=== PATIENT | female | born 1940 | race Caucasian/White ===

== ENCOUNTER 2021-09-15 07:09 | Emergency (ER) | payer MEDICARE, OTHER ==
[~2021-09-15] VITALS: Ht 154.9 cm; Wt 77.6 kg
[~2021-09-15 07:09] MED LIST: ASPI81CH; CALCA400CH PO; Cipro500 MG PO; FAMO20; Fibercon625 MG PO; Flagyl500 MG PO; GABA100 PO; IPRA.06NI; MELO7.5; METO25ER; NITR.4SL; QVAR7.3 GM IH; RHINOCORT ALL8.43 ML; VAGIFEM10 MCG VAG; XYZAL5 MG PO; Zofran Odt8 MG SL
[2021-09-15 07:43] LABS: BASOPHILS ABSOLUTE AUTO 0.08 K/mm3 (0.00-0.23); BASOPHILS PERCENT AUTO 1 % (0-2); EOSINOPHILS ABSOLUTE AUTO 0.15 K/mm3 (0.00-0.68); EOSINOPHILS PERCENT AUTO 2 % (0-6); Hematocrit 41.5 % (33.0-51.0); Hemoglobin 13.4 g/dL (11.5-16.0); IMMATURE GRAN ABSOLUTE AUTO 0.03 K/mm3 (0.00-0.10); IMMATURE GRAN PERCENT AUTO 0 % (0-1); LYMPHOCYTES ABSOLUTE AUTO 2.41 K/mm3 (0.84-5.20); LYMPHOCYTES PERCENT AUTO 36 % (21-46); MONOCYTES ABSOLUTE AUTO 0.68 K/mm3 (0.16-1.47); MONOCYTES PERCENT AUTO 10 % (4-13); Mean Corpuscular HGB 30.7 pg (26.0-34.0); Mean Corpuscular HGB Conc 32.3 g/dL (31.5-36.5); Mean Corpuscular Volume 95 fL (80-100); Mean Platelet Volume 10.8 fL (9.1-12.4); NEUTROPHILS ABSOLUTE AUTO 3.35 K/mm3 (1.96-9.15); NEUTROPHILS PERCENT AUTO 50 % (41-73); Platelet Count 228 K/mm3 (150-400); RDW Coefficient Variation 12.2 % (11.7-14.2); RDW Standard Deviation 42.6 fL (35.1-46.3); Red Blood Cell Count 4.36 M/mm3 (3.80-5.20)
[2021-09-15 07:52] LABS: Alanine Aminotransfer (ALT/SGP 27 U/L (12-78); Albumin, Blood 3.5 g/dL (3.4-5.0); Albumin/Globulin Ratio 0.9 (0.8-1.8); Alk Phos 79 U/L (50-136); Anion Gap 3 mmol/L (6-16); Aspartate Aminotrans (AST/SGOT 20 U/L (12-37); Bilirubin, Total 0.9 mg/dL (0.1-1.0); Blood Urea Nitrogen 19 mg/dL (8-24); Bun/Creatinine Ratio 23.2 (12.0-20.0); CO2, Blood 26 mmol/L (21-32); Calcium, Blood 8.9 mg/dL (8.5-10.1); Chloride, Blood 106 mmol/L (98-108); Creatinine, Blood 0.82 mg/dL (0.40-1.00); Ethanol (Alcohol), Blood, Med <3 mg/dL; Globulin, Blood 3.7 g/dL (2.2-4.0); Glomerular Filtration Rate 72 (60-); Glucose, Blood 95 mg/dL (70-99); Sodium, Blood 135 mmol/L (136-145); Total Protein, Blood 7.2 g/dL (6.4-8.2)
== END 2021-09-15 09:40 | disposition home or self-care (01) ==
LOC: ER 07:09
PROVIDERS: Student in an Organized Health Care Education/Training Program
DX: R53.1 Weakness (principal); R29.810 Facial weakness; I10 Essential (primary) hypertension; J44.9 Chronic obstructive pulmonary disease, unspecified; Z88.6 Allergy status to analgesic agent; Z91.010 Allergy to peanuts; Z88.0 Allergy status to penicillin; Z88.8 Allergy status to other drugs, medicaments and biological substances; Z91.018 Allergy to other foods; Z79.899 Other long term (current) drug therapy
CPT/HCPCS: 36415; 70450; 70496; 70498; 80053; 82947; 85025; 93005; 93010; G0480; Q9967

== ENCOUNTER → 2023-05-28 | Outpatient (CLI) | payer MEDICARE | LOC: LAB SHORT 10:46 → LAB 10:46 | DX: L08.0 Pyoderma (principal) | CPT/HCPCS: 87070; 87205 ==

== ENCOUNTER 2024-01-05 05:40 | Inpatient (IN) | payer MEDICARE, OTHER ==
[2024-01-05] VITALS (17 sets, daily range): BP systolic 111–148; BP diastolic 58–84
[~2024-01-05] VITALS: Ht 154.9 cm; Wt 74.8 kg
[2024-01-05 07:07] LABS: BASOPHILS ABSOLUTE AUTO 0.04 K/mm3 (0.00-0.23); BASOPHILS PERCENT AUTO 1 % (0-2); EOSINOPHILS ABSOLUTE AUTO 0.28 K/mm3 (0.00-0.68); EOSINOPHILS PERCENT AUTO 5 % (0-6); Hematocrit 37.7 % (33.0-51.0); Hemoglobin 12.6 g/dL (11.5-16.0); IMMATURE GRAN ABSOLUTE AUTO 0.02 K/mm3 (0.00-0.10); IMMATURE GRAN PERCENT AUTO 0 % (0-1); LYMPHOCYTES ABSOLUTE AUTO 2.11 K/mm3 (0.84-5.20); LYMPHOCYTES PERCENT AUTO 41 % (21-46); MONOCYTES ABSOLUTE AUTO 0.69 K/mm3 (0.16-1.47); MONOCYTES PERCENT AUTO 13 % (4-13); Mean Corpuscular HGB Conc 33.4 g/dL (31.5-36.5); Mean Corpuscular Volume 93 fL (80-100); NEUTROPHILS ABSOLUTE AUTO 2.07 K/mm3 (1.96-9.15); NEUTROPHILS PERCENT AUTO 40 % (41-73); Platelet Count 175 K/mm3 (150-400); RDW Coefficient Variation 11.9 % (11.7-14.2); RDW Standard Deviation 40.7 fL (35.1-46.3); Red Blood Cell Count 4.07 M/mm3 (3.80-5.20); White Blood Cell Count 5.21 K/mm3 (4.00-11.30)
[2024-01-05 07:16] LABS: Bun/Creatinine Ratio 16.8 (12.0-20.0); Calcium, Blood 9.2 mg/dL (8.5-10.1); Creatinine, Blood 0.83 mg/dL (0.40-1.00); Potassium, Blood 4.1 mmol/L (3.5-5.5)
[2024-01-05] MEDS ORDERED: Ondansetron HCl 2 MG / ML 2ML Vial IV ONE (08:20)
[2024-01-05] MEDS ORDERED: FentaNYL Citrate 50 MCG/ML 2 ML Injection IV ONE (08:20)
[2024-01-05] MEDS ORDERED: HYDROmorphone HCl/Pf 1MG SYR IV PRN (09:05)
[2024-01-05] MEDS ORDERED: Prochlorperazine Edisylate 10 mg Vial IV PRN (09:05)
[2024-01-05] MEDS ORDERED: Lactated Ringer's 1,000 ML IV SCH (09:05)
[2024-01-05] MEDS ORDERED: Acetaminophen 325 MG TABLET PO PRN (09:10)
[2024-01-05] MEDS ORDERED: Enalaprilat 1.25 MG/ML 2ML Vial IV PRN (09:10)
[2024-01-05] MEDS ORDERED: propofoL 60 ML IV ONE (10:59)
[2024-01-05] MEDS ORDERED: ePHEDrine Sulfate 50 MG/ML 1ML Injection ONE (10:59)
[2024-01-05] MEDS ORDERED: Dexamethasone Sod Phos 10 MG/ML 1ML VIAL ONE (11:00)
[2024-01-05] MEDS ORDERED: EpiNEPhrine 1 MG/1 ML 1ML Vial ONE (11:00)
[2024-01-05] MEDS ORDERED: Bupivacaine HCl 0.25% 30 ML Injection ONE (11:00)
[2024-01-05] MEDS ORDERED: CeFAZolin Sodium 2,000 MG in NS 100 ML IV SCH ×2 (11:30→20:00)
[2024-01-05] MEDS ORDERED: Tranexamic Acid 100 ML IV SCH (11:30)
--- NOTE | 2024-01-05 12:39 | NUR ---
01/05/24 [id number] Elva Herrera PATIENT RECEIVED A CLIFF NERVE BLOCK OF THE LEFT SIDE IN THE OR PERFORMED BY AT BEDSIDE PRIOR TO PROCEDURE START.
[2024-01-05] MEDS ORDERED: propofoL 20 ML IV ONE ×2 (12:54→13:52)
[2024-01-05] MEDS ORDERED: Phenylephrine HCl 100 MCG/ML-NS 10MLSYR (1MG/10ML) ONE (13:28)
[2024-01-05] MEDS ORDERED: Esmolol HCL 10 MG/ML 10ML VIAL ONE (13:30)
[2024-01-05] MEDS ORDERED: Avastin25 MG/ML (15:50)
[2024-01-05] MEDS ORDERED: LOSA25 PO (15:51)
[2024-01-05 16:09] LABS: Bun/Creatinine Ratio 17.4 (12.0-20.0); Calcium, Blood 8.7 mg/dL (8.5-10.1); Creatinine, Blood 0.69 mg/dL (0.40-1.00); Potassium, Blood 4.1 mmol/L (3.5-5.5)
[2024-01-05] MEDS ORDERED: HYDROcodone 5-APAP 325 TAB PO PRN (16:40)
--- NOTE | 2024-01-05 17:10 | NUR ---
SUMMARY VSS STABLE SINCE ARRIVING TO UNIT FROM PACU. PT HAS NOT BEEN OOB YET. MEDICATED PER ORDERS W/DILAUDID FOR 5/10 L HIP PAIN. PT HAS FULL SENSATION TO BLE. [place] DRAINING YELLOW URINE. PT HAS SMALL AMOUNT DRAINAGE ON AQUACEL. HAS PETECHIE TO L THIGH AND LOWER ABDOMEN THAT HAS BEEN PRESENT SINCE ARRIVED TO UNIT FROM PACU. CALL LIGHT IN REACH.
[2024-01-05] MEDS ORDERED: ATOR20 PO (18:04)
[2024-01-05] MEDS ORDERED: LOSA50 PO (18:05)
[2024-01-05] MEDS ORDERED: LEVOCETIRIZINE D5 MG PO (18:07)
[2024-01-06] VITALS (7 sets, daily range): BP systolic 132–152; BP diastolic 54–73
[2024-01-06 04:10] LABS: BASOPHILS ABSOLUTE AUTO 0.01 K/mm3 (0.00-0.23); BASOPHILS PERCENT AUTO 0 % (0-2); EOSINOPHILS PERCENT AUTO 0 % (0-6); Hematocrit 27.4 % (33.0-51.0); Hemoglobin 9.3 g/dL (11.5-16.0); IMMATURE GRAN ABSOLUTE AUTO 0.01 K/mm3 (0.00-0.10); IMMATURE GRAN PERCENT AUTO 0 % (0-1); LYMPHOCYTES ABSOLUTE AUTO 0.69 K/mm3 (0.84-5.20); LYMPHOCYTES PERCENT AUTO 9 % (21-46); MONOCYTES PERCENT AUTO 15 % (4-13); Mean Corpuscular HGB 31.5 pg (26.0-34.0); Mean Corpuscular HGB Conc 33.9 g/dL (31.5-36.5); Mean Corpuscular Volume 93 fL (80-100); NEUTROPHILS ABSOLUTE AUTO 5.96 K/mm3 (1.96-9.15); NEUTROPHILS PERCENT AUTO 76 % (41-73); Platelet Count 155 K/mm3 (150-400); RDW Standard Deviation 40.8 fL (35.1-46.3); Red Blood Cell Count 2.95 M/mm3 (3.80-5.20); White Blood Cell Count 7.87 K/mm3 (4.00-11.30)
--- NOTE | 2024-01-06 06:19 | NUR ---
SHIFT SUMMARY NOC. PT POD 1 FOR LEFT HEMIARTHROPLASTY AFTER GLF. PT ASHLEY HAS SOME SHADOWING BUT OTHERWISE C/D/I. PT MEDICATED FOR PAIN Q4 PRN WITH ORAL NORCO. PT REPORTS RELIEF OF SX WITH MEDICATION. PT EAGAR TO WORK WITH THERAPY TODAY. [place]STON CATHETER PATENT AND DRAINING TO GRAVITY. PT RESTED WITH EYES CLOSED AND CALL LIGHT IN REACH.
[2024-01-06] MEDS ORDERED: Losartan Potassium 50 MG Tab PO SCH (12:00)
[2024-01-06 13:42] LABS: Hematocrit 28.1 % (33.0-51.0); Hemoglobin 9.3 g/dL (11.5-16.0)
[2024-01-06] MEDS ORDERED: Ondansetron 4 MG SoluTab MM PRN (15:55)
[2024-01-06] MEDS ORDERED: HYDROcodone 5-APAP 325 TAB PO PRN (16:00)
--- NOTE | 2024-01-06 17:09 | NUR ---
SUMMARY PT GOT UP TO RECLINER THIS AM WITH THERAPY. BECAME DIZZY AT THAT TIME. SAT UP IN RECLINER T/O DAY. THIS AFTERNOON, PT'S PAIN WAS NOT ADEQUATELY CONTROLLED WITH ONE NORCO SO OBTAINED ORDERS TO 1-2 TABS Q4PRN. ADMINISTERED 2ND PAIN PILL AND PT REPORTED ADEQUATE PAIN RELIEF. WHEN ATTEMPTED TO GET PT BACK TO BED FROM RECLINER, PT PASSED OUT. RN AND CAPACITOR PACK PRESS OPERATOR ASSISTED PT TO BED. PT QUICKLY REGAINED CONSCIOUSNESS AND WAS COMPLETELY ORIENTED. VSS. CALLED DR PALMER AND NOTIFIED. NO NEW ORDERS AT THIS TIME. CALL LIGHT IN REACH, PT RESTING IN BED,
[2024-01-06] MEDS ORDERED: Calcium Carbonate 500 MG Tab Chew PO SCH (21:00)
[2024-01-07 04:40] VITALS: BP 134/54
[2024-01-07 05:13] LABS: BASOPHILS ABSOLUTE AUTO 0.03 K/mm3 (0.00-0.23); BASOPHILS PERCENT AUTO 0 % (0-2); EOSINOPHILS PERCENT AUTO 1 % (0-6); Hematocrit 25.5 % (33.0-51.0); Hemoglobin 8.6 g/dL (11.5-16.0); IMMATURE GRAN ABSOLUTE AUTO 0.02 K/mm3 (0.00-0.10); IMMATURE GRAN PERCENT AUTO 0 % (0-1); LYMPHOCYTES ABSOLUTE AUTO 1.88 K/mm3 (0.84-5.20); LYMPHOCYTES PERCENT AUTO 26 % (21-46); MONOCYTES ABSOLUTE AUTO 1.16 K/mm3 (0.16-1.47); MONOCYTES PERCENT AUTO 16 % (4-13); Mean Corpuscular HGB 31.6 pg (26.0-34.0); Mean Corpuscular HGB Conc 33.7 g/dL (31.5-36.5); Mean Corpuscular Volume 94 fL (80-100); Mean Platelet Volume 11.2 fL (9.1-12.4); NEUTROPHILS ABSOLUTE AUTO 4.19 K/mm3 (1.96-9.15); NEUTROPHILS PERCENT AUTO 57 % (41-73); Platelet Count 158 K/mm3 (150-400); RDW Coefficient Variation 12.6 % (11.7-14.2); Red Blood Cell Count 2.72 M/mm3 (3.80-5.20); White Blood Cell Count 7.38 K/mm3 (4.00-11.30)
[2024-01-07 05:35] LABS: Bun/Creatinine Ratio 23.3 (12.0-20.0); Calcium, Blood 8.6 mg/dL (8.5-10.1); Creatinine, Blood 0.6 mg/dL (0.40-1.00); Potassium, Blood 4.4 mmol/L (3.5-5.5)
--- NOTE | 2024-01-07 06:24 | NUR ---
SHIFT SUMMARY NOC. PT POD 2 FOR LEFT GARRET-ARTHROPLASTY AFTER A GLF. PT AQUACEL HAS MODERATE SHADOWING BUT OTHERWISE C/D/I. SOME REDNESS NOTED DISTAL TO AQUACEL ON L HIP AT START OF SHIFT. MARKED MARGINS AROUND REDNESS AND APPLIED ICE PACK. THIS AM REDNESS IS WITHIN MARKED MARGINS AND FRESH ICE APPLIED. HIP APPEARS LESS SWOLLEN. PT MEDICATED FOR PAIN WITH REPORTED RELIEF OF SX. [place] CATHETER PATENT AND DRAINING TO GRAVITY. PT HAD A DESAT EVENT WHILE SLEEPING. O2 DROPPED TO 82%, PT PLACED ON 2L N/C AND SATS RETURNED PROMPTLY. PT WEANED TO 1L. PT RESTED WITH EYES CLOSED AND CALL LIGHT IN REACH.
[2024-01-07 07:27] VITALS: BP 141/62
[2024-01-07] MEDS ORDERED: Atorvastatin 10 MG Tab PO SCH (09:00)
[2024-01-07] MEDS ORDERED: Loratadine 10 MG Tab PO SCH (09:00)
[2024-01-07] MEDS ORDERED: Gabapentin 100 MG Cap PO PRN (09:00)
[2024-01-07] MEDS ORDERED: Enoxaparin 30 MG/0.3 ML SYR SC SCH (11:00)
[2024-01-07] MEDS ORDERED: Polyethylene Glycol 3350 17 gm PO PRN (13:05)
[2024-01-07 14:04] VITALS: BP 111/47
[2024-01-07 14:15] LABS: Hematocrit 25.7 % (33.0-51.0); Hemoglobin 8.7 g/dL (11.5-16.0)
--- NOTE | 2024-01-07 15:16 | NUR ---
SHIFT SUMMARY; PATIENT UP IN CHAIR FOR MOST OF DAY. MEDICATED X 1 FOR PAIN. PER IVETTE JULIENOUTDOOR ADVENTURE GUIDES SHE HAS BEEN ACCEPTED AT [facility] AND WILL BE DC TOMORROW TO THAT FACILITY. PATIENT PAINFULL DURING DAY AND REQUESTING PAIN MEDICATION OFTEN. ICE PACK PLACED OVER SURGICAL SITE AND PATIENT APPEARS TO BE COMFORTABLE THIS LATE AFTERNOON. SHE IS AO X 4 TODAY AND USES CALL LIGHT APPROPRIATELY. SHE HAS CONCERNS THAT SHE DOES NOT LIKE HER VEGAN MENU ITEMS AND IS ENCOURAGED TO ORDER VIA TELEPHONE. SHE VERBALIZED UNDERSTANDING AND THIS ENCOURAGED HER TO CALL IN HER ORDER USING PHONE.
[2024-01-07 19:26] VITALS: BP 121/71
--- NOTE | 2024-01-07 20:37 | NUR ---
[place]STON CATHETER REMOVED PER PT REQUEST AT 1999. PUREWICK IN PLACE.
[2024-01-07 23:51] VITALS: BP 145/65
[2024-01-08 04:09] VITALS: BP 145/60
--- NOTE | 2024-01-08 04:44 | NUR ---
SHIFT SUMMARY PT PLEASANT AND COOPERATIVE. HOUSTON CATHETER REMOVED LAST NIGHT AT 1999. PUREWICK WAS PLACED AT THAT TIME. PT HAVING DECENT OUTPUT OF YELLOW URINE. BED IN LOWEST POSITION AND CALL LIGHT WITHIN REACH. WILL CONTINUE TO MONITOR.
[2024-01-08 05:25] LABS: BASOPHILS ABSOLUTE AUTO 0.04 K/mm3 (0.00-0.23); BASOPHILS PERCENT AUTO 1 % (0-2); EOSINOPHILS ABSOLUTE AUTO 0.22 K/mm3 (0.00-0.68); EOSINOPHILS PERCENT AUTO 3 % (0-6); Hematocrit 25.8 % (33.0-51.0); Hemoglobin 8.8 g/dL (11.5-16.0); IMMATURE GRAN ABSOLUTE AUTO 0.04 K/mm3 (0.00-0.10); IMMATURE GRAN PERCENT AUTO 1 % (0-1); LYMPHOCYTES ABSOLUTE AUTO 2.17 K/mm3 (0.84-5.20); LYMPHOCYTES PERCENT AUTO 27 % (21-46); MONOCYTES ABSOLUTE AUTO 1.13 K/mm3 (0.16-1.47); MONOCYTES PERCENT AUTO 14 % (4-13); Mean Corpuscular HGB 31.7 pg (26.0-34.0); Mean Corpuscular HGB Conc 34.1 g/dL (31.5-36.5); Mean Corpuscular Volume 93 fL (80-100); Mean Platelet Volume 11.5 fL (9.1-12.4); NEUTROPHILS ABSOLUTE AUTO 4.51 K/mm3 (1.96-9.15); NEUTROPHILS PERCENT AUTO 56 % (41-73); Platelet Count 159 K/mm3 (150-400); RDW Coefficient Variation 12.2 % (11.7-14.2); RDW Standard Deviation 41.3 fL (35.1-46.3); Red Blood Cell Count 2.78 M/mm3 (3.80-5.20); White Blood Cell Count 8.11 K/mm3 (4.00-11.30)
[2024-01-08 05:54] LABS: Albumin, Blood 2.5 g/dL (3.4-5.0); Albumin/Globulin Ratio 0.8 (0.8-1.8); Bilirubin, Total 1.2 mg/dL (0.1-1.0); Bun/Creatinine Ratio 23.4 (12.0-20.0); Calcium, Blood 8.8 mg/dL (8.5-10.1); Creatinine, Blood 0.64 mg/dL (0.40-1.00); Potassium, Blood 4.3 mmol/L (3.5-5.5); Total Protein, Blood 5.5 g/dL (6.4-8.2)
[2024-01-08 07:13] VITALS: BP 145/64
--- NOTE | 2024-01-08 09:33 | NUR ---
NURSE NOTE PT WORKING W/ PT. CALL LIGHT IN REACH
[2024-01-08 14:03] VITALS: BP 133/60
== END 2024-01-08 14:40 | disposition home or self-care (01) | DRG 522 ==
LOC: ER 05:40 → SURS 10:05
PROVIDERS: Emergency Medicine; Family Medicine; Orthopaedic Surgery Sports Medicine; ADMIT Internal Medicine
PROC: 0SRS0JZ Replacement of Left Hip Joint, Femoral Surface with Synthetic Substitute, Open Approach (ICD-10-PCS; principal; 2024-01-05 10:30)
DX: S72.002A Fracture of unspecified part of neck of left femur, initial encounter for closed fracture (principal); I43 Cardiomyopathy in diseases classified elsewhere; W18.30XA Fall on same level, unspecified, initial encounter; G62.9 Polyneuropathy, unspecified; J30.2 Other seasonal allergic rhinitis; D64.9 Anemia, unspecified; I11.9 Hypertensive heart disease without heart failure; M19.90 Unspecified osteoarthritis, unspecified site; J44.9 Chronic obstructive pulmonary disease, unspecified; Z88.1 Allergy status to other antibiotic agents; Z91.010 Allergy to peanuts; Z88.8 Allergy status to other drugs, medicaments and biological substances; Z91.018 Allergy to other foods; Z79.82 Long term (current) use of aspirin; Z79.899 Other long term (current) drug therapy; Z87.891 Personal history of nicotine dependence; Z98.890 Other specified postprocedural states
CPT/HCPCS: 36415; 73502; 73562-LT; 80048; 80053; 85014; 85018; 85025; 94762; 96374; 96375; 97110; 97162; 97530; 99285-25; A9270; J0171; J0690; J1100; J1170; J1650; J2371; J2405; J2704; J3010; J7120

== ENCOUNTER → 2024-02-09 | Outpatient (CLI) | payer MEDICARE, OTHER ==
[~2024-02-09] MED LIST changes: +ATOR20 PO; +Avastin25 MG/ML; +LEVOCETIRIZINE D5 MG PO; +LOSA25 PO; +LOSA50 PO
== END ==
LOC: LAB SHORT 13:12 → LAB 13:12
DX: R30.0 Dysuria (principal)
CPT/HCPCS: 87086